=== PATIENT | male | born 1960 | race Caucasian/White ===

== ENCOUNTER 2017-03-21 10:45 | Day surgery (SDC) | payer OTHER ==
[~2017-03-21] VITALS: Ht 172.7 cm; Wt 100.7 kg
[~2017-03-21 10:45] MED LIST: ASPIR-LOW81 MG PO; BUSPIRONE HCL10 MG; LISINOPRIL-HCT1 EAC2; LISINOPRIL10 MG PO; METAMUCIL0.4 GM PO; NORCO 5-325 TA1 EACH PO; OMEPRAZOLE20 M1 PO; VITAMIN D31000 UNI1 PO; WELLBUTRIN SR100 MG PO; ZESTRIL20 MG PO
--- NOTE | 2017-03-21 12:53 | NUR ---
03/21/17 1253 RehanaEldon tate SAT 98, O2 DECREASED TO 1L.
--- NOTE | 2017-03-23 10:11 | OR ---
[facility] [address] [place], [place] [address] Signed [facility] PROCEDURE NOTE 03/21/17 IDENTIFYING STATEMENT Bang Nunez is a 57-year-old man from [place], [place], with macrocytic anemia. After explaining the risks, benefits, and alternatives to bone marrow biopsy and aspiration under conscious sedation and obtaining informed written consent, he was brought to the endoscopy suite, where a time-out was taken and the patient and procedure were correctly identified. He was placed in the prone position. Conscious sedation was applied by ASHANTI Montanez with 100 mcg of intravenous Fentanyl and 5 mg of intravenous Midazolam. The left posterior iliac crest was prepped and draped in the usual sterile manner. Local anesthesia over the left posterior iliac crest was obtained with 1 mL of 1% Lidocaine and then a left posterior iliac crest bone marrow biopsy and aspirate were obtained without adverse effects. MD SULTANA Sharma/Sowmyal /[id number] cc: Erlin Rodriges MD Electronically Signed By: DIANA MALAVE MD 03/23/17 1011 PATIENT NAME: BANG NUNEZ OPERATIVE REPORT DATE OF : 64 PHYSICIAN: DIANA MALAVE MD REPORT #: [id number] REPORT IS CONFIDENTIAL AND NOT TO BE RELEASED WITHOUT AUTHORIZATION
== END 2017-03-21 13:12 | disposition home or self-care (01) ==
LOC: OPS 10:45 → DS 12:00 → OPS 13:12
PROVIDERS: Specialist
PROC: 07DR3ZX Extraction of Iliac Bone Marrow, Percutaneous Approach, Diagnostic (ICD-10-PCS; principal; 2017-03-21 12:00)
DX: D53.9 Nutritional anemia, unspecified (principal); I10 Essential (primary) hypertension; F41.9 Anxiety disorder, unspecified; E78.5 Hyperlipidemia, unspecified; Z79.899 Other long term (current) drug therapy
CPT/HCPCS: 36415; 80053; 83010; 83615; 85025; 86038; 86880; 99152; J2250; J3010; J7040

== ENCOUNTER 2018-01-01 19:39 | Inpatient (IN) | payer OTHER ==
[~2018-01-01] VITALS: Ht 172.7 cm; Wt 91.4 kg
--- NOTE | 2018-01-01 23:21 | NUR ---
PATIENT ADMISSION COMPLETED. REPORT GIVEN TO ALIN BURRELL.
--- NOTE | 2018-01-01 23:25 | NUR ---
REPORT RECEIVED FROM ASHANTI CLARK, ASSUMED CARE FOR PT. PT ASSESMENT COMPLETE. BOWEL TONES ACTIVE X 4, ABD TENDER IN RLQ W PALPATION, PT RATES PAIN 7/10, PRN MORPHINE IV ADMINISTERED, ABD SOFT, DISTENDED. CONSENT SIGNED FOR SURGERY. SCDS ON. IVF INFUSING WNL. PT ORIENTED TO ROOM, VERBALIZES UNDERSTANDING TO USE CALL LIGHT FOR OUT OF BED. IN ROOM. RT TO PERFORM EKG AT THIS TIME. PT GIVEN ICE WATER, NPO AT MIDNIGHT. CALL LIGHT IN REACH.
--- NOTE | 2018-01-02 00:39 | NUR ---
CALL LIGHT ANSWERED, SBA TO RESTROOM FOR VOID AND BACK TO BED, SCDS ON, IVF INFUSING WNL. PT RATES PAIN 7-8/10, PRN MORPHINE IV ADMINISTERED. CALL LIGHT IN REACH, NPO AT THIS TIME.
--- NOTE | 2018-01-02 02:45 | NUR ---
CHECKED ON PT, PT LYING IN BED, ON CELL PHONE. RATES PAIN 7-8/10 IN ABD, PRN PAIN MEDICATION ADMINISTERED. LIGHTS OFF IN ROOM. IVF INFUSING, SCDS ON. PT DENIES TOILETING NEEDS. CALL LIGHT IN REACH.
--- NOTE | 2018-01-02 04:18 | NUR ---
IN ROOM FOR SCHEDULED ANTIBIOTIC ADMINISTRATION. PT SLEEPING, AWAKENS EASILY TO RN VOICE. RATES PAIN 8/10 IN RLQ, PRN MORPHINE IV ADMINISTERED. BOWEL TONES ACTIVE X 4, ABD DISTENDED, TENDER W PALPATION IN RLQ, PT DENIES NAUSEA. DENIES TOILETING NEEDS. IVF INFUSING WNL. LUNGS CLEAR THROUGHOUT ALL LOBES. CALL LIGHT IN REACH.
--- NOTE | 2018-01-02 05:30 | NUR ---
SBA TO RESTROOM. PT TO ADMINISTER PRE SURGICAL SCRUB, EDUCATION PROVIDED. PT'S TO ASSIST. MARYCARMEN ASH IN ROOM.
--- NOTE | 2018-01-02 05:33 | NUR ---
SBA TO RESTROOM FOR QS VOIDS. ABD DISTENDED, FIRM IN LEFT ABDOMEN. BOWEL TONES ACTIVE X 4, TENDER IN RLQ W PALPATION. PT C/O PAIN THROUGHOUT SHIFT, PRN MORPHINE IV FOR PAIN CONTROL. IVF INFUSING THROUGHOUT SHIFT. EKG COMPLETE, CONSENT OBTAINED FOR SURGERY THIS AM. NPO.
--- NOTE | 2018-01-02 06:25 | NUR ---
CHECKED ON PT, PT BACK IN BED, SURGICAL SCRUB COMPLETE. PT APPEARS COMFORTABLE, LYING IN BED, BREATHING NON-LABORED, CONTINUES TO RATE PAIN 7-8/10, PRN MORPHINE ADMINISTERED AT THIS TIME AFTER VERIFYING WITH DAY SURGERY RN OKAY TO ADMINISTER. PT HAS CALL LIGHT IN REACH, NO ADDL REQUESTS. SCDS ON, IVF INFUSING.
--- NOTE | 2018-01-02 09:04 | NUR ---
01/02/18 0904 Obdulia Talavera 2128-PATIENT ARRIVED TO PACU ON 10L MASK O2 SAT 95% PATIENT NONAROUSABLE ORAL AIRWAY IN PLACE RN HOLDING AIRWAY. 3 LAP SITES TO ABDOMEN CDI. RR EVEN. SR/ST
--- NOTE | 2018-01-02 09:06 | HP ---
[facility] [address] [facility] [place] [address] Signed ADMISSION DATE: 01/01/2018 REASON FOR ADMISSION: Acute appendicitis. HISTORY OF PRESENT ILLNESS: This 57-year-old white man presented to the emergency room this evening. In the morning, he had central abdominal pain, which has worsened over time, and now located in the right lower quadrant. He has had no nausea, or vomiting. Later in the day today after about 5 p.m., he had some crackers, which seemed to make the pain better actually. The pain worsened again; however, and he presented to the emergency room where he was thoroughly evaluated by Dr. Mcneill. His evaluation included clinical examination showing right-sided abdominal tenderness and a CT scan was performed, which showed dilated appendix with a fecalith. Findings consistent with acute appendicitis. He is admitted for further evaluation and care. PAST MEDICAL HISTORY: Includes, alcoholism in remission since 2007. The patient used bupropion for depression. He has not been off it since alcohol cessation. SOCIAL HISTORY: He does not smoke, and does not drink alcohol anymore. ALLERGIES: He has no known drug allergies, so he may have lactose intolerance. MEDICATIONS: include, 1. Aspirin 81 mg daily. 2. Bupropion (Wellbutrin SR 100 mg p.o. daily). 3. Vitamin D3 1000 units p.o. daily. 4. Lisinopril 20 mg p.o. at bedtime. 5. Metamucil. PRIMARY PHYSICIAN: Dr. Espinoza. PAST SURGICAL HISTORY: Surgical history includes colonoscopy, but no other surgical interventions that he expresses. Electronically Signed By: KACY GALVAN MD 01/02/18 0906 PATIENT NAME: GISSELLE NUNEZ HISTORY AND PHYSICAL DATE OF : 64 REPORT #: [id number] PHYSICIAN: KACY GALVAN MD PCP: RYLIE ESPINOZA MD REPORT IS CONFIDENTIAL AND NOT TO BE RELEASED WITHOUT AUTHORIZATION [facility] [address] [place], [place] [address] Signed REVIEW OF SYSTEMS: He denies any shortness of breath or chest pain. He has had no dysphagia. No hematemesis or blood per rectum. PHYSICAL EXAMINATION: GENERAL: This is an obese white man accompanied by his . Mucous membranes are dry. He does not look systemically toxic. Trachea is midline. He has no carotid bruit. There is no thyromegaly. CHEST: Clear. HEART: Regular without murmur. ABDOMEN: Protuberant and obese, but soft. Rovsing sign is negative. He has mild tenderness only and not particularly focal at McBurney's point that I can tell. EXTREMITIES: No clubbing, cyanosis, or edema. ASSESSMENT AND PLAN: I reviewed the CT scan and his clinical examination and so forth, and he almost certainly does have appendicitis. The fecalith is noted, and there is some thickening of the appendiceal wall and dilation of the appendix as well. There was no clinical evidence of perforation and indeed there was not excessive amount of periappendiceal inflammation. I have recommended additional fluid resuscitation, IV antibiotics, anticipating appendectomy first cased tomorrow morning. He may require an open procedure, but a laparoscopic approach will be attempted. The risks of bleeding, infection, need for open procedure, misdiagnosis, failure of diagnosis, and other and unforeseen complications were reviewed in detail. We will additionally obtain a 12-lead EKG, though he is of young age, but with obesity and this may be beneficial for anesthetic risk assessment by the chinchilla machine operator. MD JOANIE Melendez/LALIL /[id number] cc: Dr. Espinoza. Electronically Signed By: KACY GALVAN MD 01/02/18 0906 PATIENT NAME: GISSELLE NUNEZ HISTORY AND PHYSICAL DATE OF : 64 REPORT #: [id number] PHYSICIAN: KACY GALVAN MD PCP: RYLIE ESPINOZA MD REPORT IS CONFIDENTIAL AND NOT TO BE RELEASED WITHOUT AUTHORIZATION [facility] [address] [place] [address] [place], [place] [address] Signed Copies: ~ Electronically Signed By: KACY GALVAN MD 01/02/18 0906 PATIENT NAME: GISSELLE NUNEZ HISTORY AND PHYSICAL DATE OF : 64 REPORT #: [id number] PHYSICIAN: KACY GALVAN MD PCP: RYLIE ESPINOZA MD REPORT IS CONFIDENTIAL AND NOT TO BE RELEASED WITHOUT AUTHORIZATION
--- NOTE | 2018-01-02 10:10 | NUR ---
PATIENT ARRIVED FROM PACU ON 2L OF OXYGEN VIA NC O2 SATURATION AT THIS TIME CURRENTLY AT 97%. PATIENT IS ALERT AND ORIENTED AT THIS TIME. SCOPE SITES X3 ARE INTACT WITH A MINIMAL AMOUNT OF BLOODY DRAINAGE. PATIENT REPORTS NO SOB OR ABDOMINAL PAIN AT THIS TIME. A CLEAR LIQUID TRAY WAS ORDERED FOR THE PATIENT AT THIS TIME. INSTRUCTED PATIENT ON HOW TO USE THE IS.
--- NOTE | 2018-01-02 10:55 | NUR ---
PATIENT IS RESTING ON RIGHT SIDE, NO C/O PAIN OR NEEDS AT THIS TIME. PATIENT TOLERATING CLEAR LIQUIDS WITHOUT ANY NAUSEA.
--- NOTE | 2018-01-02 11:39 | EKG ---
[facility] [address] [facility] [place], [place] [address] Signed Normal sinus rhythm Nonspecific T wave abnormality Abnormal ECG No previous ECGs available Confirmed by RYLIE ESPINOZA MD ([id number]) on 01/02/2018 11:39:12 AM Electronically Signed By: RYLIE ESPINOZA MD 01/02/18 1139 PATIENT NAME: GISSELLE NUNEZ SAMUEL Electrocardiogram DATE OF : 64 PHYSICIAN: RYLIE ESPINOZA MD REPORT #: [id number] REPORT IS CONFIDENTIAL AND NOT TO BE RELEASED WITHOUT AUTHORIZATION
--- NOTE | 2018-01-02 12:03 | NUR ---
PATIENT STANDBY ASSIST UP TO THE BATHROOM TO VOID, PATIENT WAS ABLE TO WALK UNASSISTED AND WAS STEADY ON HIS FEET. PATIENT HAS NO C/O PAIN OR DIZZINESS AT THIS TIME. HE VOIDED 250 MLS OF DARK YELLOW URINE. PATIENT'S GOWN CHANGED AND LINEN CHANGED IN THE BED. PATIENT STILL WORKING SLOWLY ON HIS CLEAR LIQUID TRAY. HE DENIES ANY NAUSEA.
--- NOTE | 2018-01-02 12:58 | NUR ---
POST OP VITALS COMPLETE AT THIS TIME, PATIENT STILL DENIES ANY PAIN AT THIS TIME. LUNCH ORDERED AT THIS TIME.
--- NOTE | 2018-01-02 14:08 | NUR ---
PATIENT ORDERED A REGULAR LUNCH, A SANDWICH AND ATE 100% OF IT, NO C/O PAIN OR NAUSEA AT THIS TIME. PATIENT IS STILL IN NO PAIN AND HAS BEEN RESTING IN HIS ROOM.
--- NOTE | 2018-01-02 14:42 | NUR ---
PATIENT RA SATURATION 97% PATIENT LEFT ON RA AT THIS TIME. HIS WATER WAS FILLED UP AT THIS TIME AND PAIN LEVEL IN HIS ABDOMEN 3/10 PATIENT GIVEN 30MG TORADOL IV. UMBILICUS INCISION CONTINUES TO LEAK GAUZE AND MEDIPORE TAPE APPLIED
--- NOTE | 2018-01-02 15:30 | NUR ---
PT RECEIVED FROM SCOTT BURRELL AT APPROXIMATELY 1530. PT RESTING COMFORTABLY IN BED. LAT SITES TO ABDOMEN HAVE BEEN REINFORCED PREVIOUSLY AND NO NEW DRAINAGE NOTED. PT DENIES PAIN, NO DISTRESS, VSS. AT BEDSIDE. WILL CONTINUE TO MONITOR.
--- NOTE | 2018-01-02 18:34 | NUR ---
PT HAD A LAP WILLY TODAY, STABLE, HERE OVERNIGHT FOR IV ANTIBIOTICS. LAP SITES ARE REINFORCED, NO NEW DRAINAGE, MINIMAL DRY DRAINAGE NOTED. PT IS EATING AND VOIDING WELL. ANTICIPATED DISCHARGE TOMORROW.
--- NOTE | 2018-01-02 19:05 | NUR ---
BEDSIDE REPORT RECEIVED FROM ASHANTI GONZALEZ. PT AWAKE, SITTING UP BED. DENIES PAIN AT THIS TIME. CONT. PULSE OX IN PLACE, SPO2 WNL. URINAL EMPTIED, PT GIVEN ICE WATER. IVF INFUSING WNL. CALL LIGHT IN REACH.
--- NOTE | 2018-01-02 20:53 | NUR ---
CALL LIGHT ANSWERED, IV PUMP BEEPING, FLUSHED WNL. PT CONTINUES TO DENY PAIN, LYING IN BED WATCHING MOVING ON PHONE. NO REQUESTS AT THIS TIME. CALL LIGHT IN REACH. SCDS ON. CONT. PULSE OX IN PLACE SATURATIONS WNL.
--- NOTE | 2018-01-02 22:15 | NUR ---
IN PT ROOM FOR MEDICATION ADMINISTRATION, PT DENIES PAIN IN ABD, C/O BOOTH, PRN TYLENOL ADMINISTERED. BOWEL TONES ACTIVE X 4, PT STATES PASSING FLATUS, DENIES NAUSEA, PT ABD DISTENDED, NON-TENDER W PALPATION. INCISIONS CDI, SHADOWING NOTED ON GAUZE AT MID ABD SITE. URINAL EMPTIED. IVF INFUSING WNL. CALL LIGHT IN REACH, SCDS ON.
--- NOTE | 2018-01-03 00:16 | NUR ---
CHECKED ON PT, APPEARS TO BE SLEEPING, EYES CLOSED, BREATHING NON-LABORED, SATURATIONS WNL ON CONT. PULSE OX. LIGHTS OFF IN ROOM, IVF INFUSING.
--- NOTE | 2018-01-03 02:00 | NUR ---
PT ASSESSMENT COMPLETE. LAP SITES CLEAN DRY AND INTACT, BOWEL TONES ACTIVE X 4, ABD DISTENDED, SOFT. LUNGS CLEAR THROUGHOUT. HR REGULAR RHYTHM. SATURATIONS WNL ON CONT. PULSE OX. PT DENIES BOOTH, DENIES ABDOMINAL PAIN. URINAL EMPTIED, PT GIVEN ICE WATER, CALL LIGHT IN REACH.
--- NOTE | 2018-01-03 04:28 | NUR ---
IN PT ROOM FOR ANTIBIOTIC ADMINISTRATION, PT SLEEPING, AWAKENS EASILY TO VOICE. URINAL EMPTIED, NO ADDL REQUESTS. CALL LIGHT IN REACH. SCDS ON, IVF INFUSING.
--- NOTE | 2018-01-03 06:05 | NUR ---
PT HAS DENIED ABD PAIN THROUGHOUT SHIFT. PRN TYLENOL X 1 FOR BOOTH. IVF INFUSING THROUGHOUT SHIFT. SATURATIONS WNL ON RA, CONT. PULSE OXIMETER. QS VOIDS IN URINAL. SCDS IN PLACE. TOLERATING REGULAR DIET, NO NAUSEA. INCISIONS C/D/I, ABD DISTENDED, SOFT, BOWEL TONES ACTIVE.
--- NOTE | 2018-01-03 06:30 | NUR ---
PT APPEARS TO BE SLEEPING, EYES CLOSED, LYING ON LEFT SIDE BREATHING NON-LABORED, SATURATIONS WNL ON RA. SCDS ON, IVF INFUSING.
--- NOTE | 2018-01-03 08:28 | NUR ---
PT RESTING AT BEDSIDE, STATES THAT INCISION SITES ARE MORE TENDER TODAY, REQUESTED PAIN MANAGEMENT, GAVE IV TORADOL PER ORDERS. NO DISTRESS, VSS. PT DENIES NAUSEA, TOLERATING REGULAR DIET WELL. WILL CONTINUE TO MONITOR.
[2018-01-03] MEDS ORDERED: MAPAP325 MG PO (09:56)
[2018-01-03] MEDS ORDERED: PERCOCET 7.5-31 EACH PO (09:57)
--- NOTE | 2018-01-03 10:00 | NUR ---
PT AMBULATING IN THE HALLS WITH , TOLERATED WELL. WILL CONTINUE TO MONITOR.
--- NOTE | 2018-01-03 10:15 | NUR ---
MED REC COMPLETED
--- NOTE | 2018-01-03 23:51 | DS ---
[facility] [address] [place], [place] [address] Signed ADMISSION DATE: 01/01/2018 DISCHARGE DATE: 01/03/2018 REASON FOR ADMISSION: Acute appendicitis. HISTORY OF PRESENT ILLNESS: This 57-year-old white man presented to the emergency room the evening of 01/01/2018, where he was noted to have central abdominal pain, which had worsened over the time during the day. He had no pain earlier than that. He ate about 05:00 p.m., some crackers, which seemed to make the pain better. He presented to the emergency room late in the evening. He was evaluated by Dr. Mcneill. Clinical examination was suggestive of appendicitis. A CT scan was performed confirming acute appendicitis. He was admitted for further evaluation and care. PERTINENT PHYSICAL EXAMINATION: GENERAL: Showed a large and obese white man, who is accompanied by his . HEENT: Mucous membranes were dry. He did not look systemically toxic. Trachea is midline. CHEST: Clear. HEART: Regular without murmur. ABDOMEN: Protuberant, obese, but soft. Rovsing sign was negative. He had mild tenderness only and not particularly focal. IMAGING: A CT scan was reviewed confirming a dilated thickened appendix. No sign of periappendiceal fluid. HOSPITAL COURSE: He was admitted, given fluid resuscitation, intravenous antibiotics, and locksmith case. Following morning, underwent laparoscopic appendectomy. He was found to have a gangrenous appendix without evidence of abscess. Appendectomy was performed laparoscopically. Postoperatively, he felt much better. He was maintained for additional IV antibiotics. The following morning, he is appearing to be doing quite well. Has minimal incisional pain, feels much better. He is tolerating a regular diet. He will be discharged to home. The special instructions to avoid lifting more than 20 pounds for the next 2 weeks. He is permitted to shower tomorrow and we will leave Steri-Strips on. DISCHARGE MEDICATIONS: Electronically Signed By: KACY GALVAN MD 01/03/18 2351 PATIENT NAME: GISSELLE NUNEZ DISCHARGE SUMMARY DATE OF : 64 REPORT #: [id number] PHYSICIAN: KACY GALVAN MD PCP: RYLIE ESPINOZA MD REPORT IS CONFIDENTIAL AND NOT TO BE RELEASED WITHOUT AUTHORIZATION [facility] [address] [place], [place] [address] Signed 1. Tylenol 650 mg p.o. q.6 hours p.r.n. pain. 2. Percocet 7.5/325 1-2 p.o. q.4 hours p.r.n. pain, #10. 3. Aspirin 81 mg p.o. daily. 4. Bupropion (Wellbutrin SR) 100 mg p.o. daily. 5. Vitamin D3 1000 units daily. 6. Lisinopril 20 mg daily. 7. Metamucil. FOLLOWUP PLAN: He is to return to see me in approximately a month or so. Appointment will be made before he leaves. DISCHARGE DIAGNOSES: 1. Acute gangrenous appendicitis with fecalith, status post laparoscopic appendectomy. 2. Obesity. 3. Depression. 4. Hypertension. Kacy Galvan MD JM/MODL /[id number] cc: Dr. Good Espinoza MD Copies: RYLIE ESPINOZA MD ~ Electronically Signed By: KACY GALVAN MD 01/03/18 2351 PATIENT NAME: GISSELLE NUNEZ DISCHARGE SUMMARY DATE OF : 64 REPORT #: [id number] PHYSICIAN: KACY GALVAN MD PCP: RYLIE ESPINOZA MD REPORT IS CONFIDENTIAL AND NOT TO BE RELEASED WITHOUT AUTHORIZATION
--- NOTE | 2018-01-03 23:52 | OR ---
[facility] [address] [place], [place] [address] Signed DATE OF OPERATION: 01/01/2018 SURGEON: Kacy Galvan MD PREOPERATIVE DIAGNOSIS: Acute appendicitis with fecalith. POSTOPERATIVE DIAGNOSIS: Acute gangrenous appendicitis. PROCEDURE: Laparoscopic appendectomy. ANESTHESIA: General endotracheal, Kacy Jenkins CRNA and local 20 mL of 0.25% Marcaine with epinephrine. INDICATION: This 57-year-old white man is a patient of Dr. Espinoza. He presented to the emergency room late yesterday and was evaluated by me at approximately 10 p.m. with findings of acute appendicitis. This included right-sided abdominal pain, elevated white count and a CT scan showing a dilated thickened appendix with a fecalith. The patient has a significant amount of abdominal obesity. He has been fluid resuscitated given intravenous antibiotics, and is now to undergo appendectomy preferred by laparoscopic approach. He and his understand the risks of bleeding, infection, need for open procedure, need for other indicated procedures and wished to proceed. FINDINGS: Turbid fluid was noted in the right paracolic gutter. The appendix was markedly inflamed and surrounding fibrin. No purulent adhesions isolated the appendix largely. There was no sign of abscess, but the appendix was gangrenous. Complete appendectomy was performed with special care to transect the appendix flushed with the cecum. Security of the appendiceal mesenteric vessels was with clips resin staple as usual due to the inflammatory nature of the problem and need for more extensive dissection. The gallbladder itself had a dull sanchez appearance. There were omental adhesions to it. The liver appeared normal. There were no other findings of concern. Irrigation of the peritoneal cavity was completed and remains no turbid fluid. DESCRIPTION OF PROCEDURE: The patient was brought to the operating room, given a general endotracheal anesthetic. Electronically Signed By: KACY GALVAN MD 01/03/18 2352 PATIENT NAME: GISSELLE NUNEZ OPERATIVE REPORT DATE OF : 64 REPORT #: [id number] PHYSICIAN: KACY GALVAN MD PCP: RYLIE ESPINOZA MD REPORT IS CONFIDENTIAL AND NOT TO BE RELEASED WITHOUT AUTHORIZATION [facility] [address] [place], [place] [address] Signed Preoperative antibiotic cefoxitin was once again given in the operating room, although he had been on a scheduled dosage plan already. Heparin was subcutaneously administered as well. Sequential compression device stockings were used. After satisfactory general endotracheal anesthesia, the abdomen was clipped and prepared with a chlorhexidine solution and draped sterilely. An infraumbilical incision was made and using an open Beverley cannula technique, the abdomen was entered and pneumoperitoneum achieved to level 14 mmHg of carbon dioxide gas. Intraabdominal inspection showed no sign of ascites or carcinomatosis, but did show turbid fluid in the right paracolic gutter. A 12 mm epigastric port was placed under direct visualization and the camera were placed to that site. A laparoscopic grasper was used to gently interrogate the right lower abdomen. The patient was placed in the left lateral down position. Dense adhesions in the region of the cecum and ileum were noted. The right lower quadrant 5 mm port was placed and with two hand manipulation, ultimately visualization of the appendix could be undertaken. It had a sanchez appearance consistent with gangrenous changes. The antimesenteric fat pad retrieved, was densely adherent to the appendix. This was gently dissected free, ultimately only allow grasping of the appendix itself. The appendix was elevated and although friable, was able to be from surrounding tissue. A laparoscopic Steven clamp was applied to the appendix, so as to avoid disruption of its friable wall. With blunt dissection, the fibrinous adhesions were taken down with blunt and electrocautery dissection as well as the irrigation suction device. Transection of the fatty mesoappendix was undertaken to the point where blood vessels were identified. These were clipped and divided rather than stapler applied. Meticulous care was maintained to ultimately dissect free the origin of the appendix and once clearly identified and freed, an Endo-NARESH stapler device was used to transect the base the appendix flushed with the cecum. This required replacement of the camera to the umbilical site and the stapling device through the epigastric port. The appendix was placed in an endobag and extracted through the infraumbilical port site opened and photograph taken of the gangrenous appendix. There was a bit of a microperforation noted. Irrigation was undertaken in the right lower quadrant. The staple line was completely hemostatic. Excess irrigation fluid was suctioned free. The camera was replaced to the umbilical site. An additional fluid suctioned from over the dome of the liver on the right side. The gallbladder was then visualized and found to have dense omental adhesions around it as it had a grayish appearance consistent with chronic cholecystitis. It is clearly not the acutely inflamed process, however. The trocars were then removed under direct visualization. The infraumbilical fascial incision was reapproximated with interrupted 0 Vicryl suture. All wounds were copiously irrigated with saline solution. Skin closed with interrupted 3-0 Vicryl. Steri-Strips were applied. Electronically Signed By: KACY GALVAN MD 01/03/18 4750 PATIENT NAME: GISSELLE NUNEZ SAMUEL OPERATIVE REPORT DATE OF : 64 REPORT #: [id number] PHYSICIAN: KACY GALVAN MD PCP: RYLIE ESPINOZA MD REPORT IS CONFIDENTIAL AND NOT TO BE RELEASED WITHOUT AUTHORIZATION [address] [place], [place] [address] Signed The patient was ultimately extubated and transferred to recovery in good condition, having suffered no complications. Sponge, needle, and instruments counts were reported as correct x3. MD JOANIE Melendez/JAYA /[id number] cc: Dr. Charito Espinoza MD Copies: RYLIE ESPINOZA MD ~ Electronically Signed By: KACY GALVAN MD 01/03/18 2352 PATIENT NAME: GISSELLE NUNEZ OPERATIVE REPORT DATE OF : 64 REPORT #: [id number] PHYSICIAN: KACY GALVAN MD PCP: RYLIE ESPINOZA MD REPORT IS CONFIDENTIAL AND NOT TO BE RELEASED WITHOUT AUTHORIZATION
== END 2018-01-03 10:46 | disposition home or self-care (01) | DRG 343 ==
LOC: ED 19:39 → MS 19:40 → ED 19:40 → MS 19:40
PROVIDERS: ADMIT Surgery
PROC: 0DTJ4ZZ Resection of Appendix, Percutaneous Endoscopic Approach (ICD-10-PCS; principal; 2018-01-01)
DX: K35.89 Other acute appendicitis (principal); F32.9 Major depressive disorder, single episode, unspecified; I10 Essential (primary) hypertension; E66.9 Obesity, unspecified; Z79.82 Long term (current) use of aspirin
CPT/HCPCS: 00840; 74177; 80053; 81001; 83690; 85025; 93005; 93010; 94762; 96361; 96374; 96375; 99285; J0131; J0694; J1100; J1644; J1885; J2250; J2270; J2405; J2704; J2765; J3010; J7030; J7120; Q9967